=== PATIENT | female | born 1950 | race Caucasian/White ===

== ENCOUNTER 2022-06-11 16:09 | Emergency (ER) | payer MEDICARE, SELFPAY ==
--- NOTE | 2022-06-11 16:11 | ED.EXTPRO ---
HPI - Extremity Problem General Chief complaint: Extremity Problem,Nontraumatic Stated complaint: rt pain hip Time Seen by Provider: 06/11/22 16:22 Source: patient, RN notes reviewed and old records reviewed Mode of arrival: ambulatory Limitations: no limitations History of Present Illness HPI Narrative: 72-year-old female [facility] pain since before she left [place]. Patient states that she is sure she has bursitis in her right hip is requesting a cortisone shot into her hip. Patient denies any injury. Painful with walking. Denies new back pain. Denies any new numbness or tingling, reports she has chronic neuropathy. Patient is only requesting a cortisone shot in her hip so she can make it back to [place] Already takes tramadol, prednisone and meloxicam daily. Related Data Home Medications Medication Instructions Recorded Confirmed duloxetine 30 mg capsule,delayed 30 mg PO DAILY 06/11/22 06/11/22 release duloxetine 60 mg capsule,delayed 60 mg PO DAILY 06/11/22 06/11/22 release famotidine 20 mg tablet 20 mg PO DIRECTED 06/11/22 06/11/22 furosemide 40 mg tablet 40 mg PO DIRECTED 06/11/22 06/11/22 gabapentin 600 mg tablet 600 mg PO DIRECTED 06/11/22 06/11/22 levothyroxine 25 mcg tablet 25 mcg PO DIRECTED 06/11/22 06/11/22 lorazepam 1 mg tablet 1 mg PO DAILY 06/11/22 06/11/22 meloxicam 7.5 mg tablet 7.5 mg PO DAILY 06/11/22 06/11/22 metoprolol tartrate 25 mg tablet 25 mg PO DAILY 06/11/22 06/11/22 prednisone 10 mg tablet 10 mg PO DAILY 06/11/22 06/11/22 sulfasalazine 500 mg 500 mg PO DIRECTED 06/11/22 06/11/22 tablet,delayed release sumatriptan succinate 50 mg tablet 50 mg PO DAILY 06/11/22 06/11/22 Allergies Allergy/AdvReac Type Severity Reaction Status Date / Time No Known Allergies Allergy Verified 06/11/22 16:43 Review of Systems Review of Systems: All systems reviewed & are unremarkable except as noted in HPI and below Constitutional: Constitutional: Reports no additional constitutional complaints Eyes: Eyes: Reports no additional eye complaints ENT: Reports system reviewed and no additional complaints, except as documented Cardiovascular: Cardiovascular: Reports no additional cardiovascular complaints, Denies chest pain and Denies dyspnea Respiratory: Respiratory: Reports no additional respiratory complaints, Denies chest congestion, Denies cough and Denies dyspnea Gastrointestinal: Gastrointestinal: Reports no additional gastrointestinal complaints, Denies abdominal pain, Denies nausea and Denies vomiting Musculoskeletal: Musculoskeletal: Reports as per HPI, Reports arthralgias (Right hip) and Denies joint swelling Integumentary/Breasts: Skin/Breast: Reports system reviewed and no additional complaints, except as docu Neurologic: Reports system reviewed and no additional complaints, except as documented Psychiatric: Psychiatric: Reports no additional psychiatric complaints Allergic/Immunologic: Allergic/Immunologic: Reports no additional allergic/immunologic complaints [facility] Past Medical History Medical History (Updated 06/12/22 @ 00:00 by Background Daemon) Anxiety and depression Hypothyroid Migraine Neuropathy Osteoarthritis Comments At the time of my signature, I reviewed and agree with the nursing past medical, surgical, social, and family history. There is no relevant family history pertinent to the patient complaint. Exam Const: General: cooperative, healthy appearing, comfortable, no acute distress, well developed, alert and well nourished Nutritional Appearance: well nourished and obese Orientation/consciousness: patient oriented x3 Limitations: no limitations HENMT: Head: normal to inspection Ears: hearing grossly normal bilaterally and external ears normal Face/Nose/Sinus: Normal external nose present, Normal nares present, Normal nasal mucous membranes and turbinates present and normal facial exam Face and sinus: normal facial e
[2022-06-11 16:20] VITALS: O2SAT 99
[2022-06-11 16:23] VITALS: BP 123/60; PULSE 83; RESP 16; TEMP 36.9
== END 2022-06-11 16:30 | disposition home or self-care (01) ==
PROVIDERS: Emergency Provider Nurse Practitioner
DX: M25.551 Pain in right hip (principal); E03.9 Hypothyroidism, unspecified; M19.90 Unspecified osteoarthritis, unspecified site; G62.9 Polyneuropathy, unspecified; F41.9 Anxiety disorder, unspecified
CPT/HCPCS: 99212; G0463